=== PATIENT | male | born 1995 | race Caucasian/White ===

== ENCOUNTER 2018-10-10 21:15 | Emergency (ER) | payer SELFPAY ==
[~2018-10-10] VITALS: Ht 188 cm; Wt 72.6 kg
[2018-10-10 22:13] LABS: BASOPHILS % 0.4 % (0.0-1.0); EOSINOPHILS # (AUTO) 0.3 (0.0-0.4); EOSINOPHILS % 3.6 % (0.0-6.0); HEMATOCRIT 44.1 % (38.2-49.6); HEMOGLOBIN 14.9 g/dL (14.0-18.0); LYMPHOCYTES # (AUTO) 1.3 (1.0-3.2); LYMPHOCYTES % 15.7 % (18.0-39.1); MEAN CORPUSCULAR HEMOGLOBIN 31.2 pg (28-32); MEAN CORPUSCULAR HGB CONC 33.8 g/dL (31-35); MEAN CORPUSCULAR VOLUME 92.3 fL (81-99); MONOCYTES # (AUTO) 0.9 (0.2-0.8); MONOCYTES % 10.9 % (4.4-11.3); NEUTROPHILS # (AUTO) 5.8 (2.1-6.9); NEUTROPHILS % 69.2 % (38.7-80.0); PLATELET COUNT 267 x10e3/uL (140-360); RED BLOOD COUNT 4.78 x10e6/uL (4.3-5.7); RED CELL DISTRIBUTION WIDTH 13.4 % (11.7-14.4)
[2018-10-10 22:20] LABS: BILIRUBIN,URINE NEGATIVE (NEGATIVE); CLARITY,URINE CLEAR (CLEAR); COLOR,URINE YELLOW (YELLOW); KETONES,URINE NEGATIVE (NEGATIVE); LEUKOCYTE ESTERASE ,URINE NEGATIVE (NEGATIVE); NITRITE,URINE NEGATIVE (NEGATIVE); PROTEIN,URINE DIPSTICK TRACE (NEGATIVE); URINE UROBILINOGEN 0.2 mg/dL (0.2 - 1)
[2018-10-10 22:23] LABS: AMPHETAMINES SCREEN,URINE NEGATIVE (NEGATIVE); BENZODIAZEPINES SCREEN,URINE NEGATIVE (NEGATIVE); PHENCYCLIDINE SCREEN,URINE NEGATIVE (NEGATIVE)
[2018-10-10 22:39] LABS: ALANINE AMINOTRANSFERASE 10 IU/L (0-55); ALBUMIN 4.4 g/dL (3.5-5.0); ALBUMIN/GLOBULIN RATIO 1.3 (0.8-2.0); ALKALINE PHOSPHATASE 76 IU/L (40-150); AMYLASE 43 U/L (25-125); ANION GAP 13.6 mmol/L (8-16); BLOOD UREA NITROGEN 7 mg/dL (7-26); BUN/CREATININE RATIO 6 (6-25); CALCIUM 9.5 mg/dL (8.4-10.2); CARBON DIOXIDE 24 mmol/L (22-29); CHLORIDE 105 mmol/L (98-107); CREATININE, SERUM 1.09 mg/dL (0.72-1.25); EST GLOMERULAR FILTRATION RATE > 60 ML/MIN (60-); GLUCOSE 77 mg/dL (74-118); LIPASE 11 U/L (8-78); POTASSIUM 3.6 mmol/L (3.5-5.1); SODIUM 139 mmol/L (136-145)
[2018-10-10 22:53] LABS: BACTERIA,URINE MODERATE /HPF; EPITHELIAL CELLS,URINE MANY /LPF; RBC,URINE 0-5 /HPF (0-5); WBC,URINE (MAN) >50 /HPF (0-5)
--- NOTE | 2018-10-10 22:53 | Diagnostic Imaging Report ---
EXAMINATION: CHEST 2 VIEWS INDICATION: ^CHEST PAIN ^[id number] ^2220 COMPARISON: None FINDINGS: PA and lateral views TUBES and LINES: None. LUNGS: Lungs are well inflated. There is no evidence of pneumonia or pulmonary edema. PLEURA: No pleural effusion or pneumothorax. HEART AND MEDIASTINUM: The cardiomediastinal silhouette is unremarkable. BONES AND SOFT TISSUES: No acute osseous lesion. Soft tissues are unremarkable. UPPER ABDOMEN: No free air under the diaphragm. IMPRESSION: No acute thoracic abnormality. Signed by: Dr. Nayan Boston MD on 10/10/2018 10:50 PM
[2018-10-10 23:09] LABS: CREATINE KINASE 108 IU/L (30-200)
[2018-10-11] MEDS ORDERED: AZITHROMYCIN 250 MG TAB PO STA (00:17)
[2018-10-11] MEDS ORDERED: CEFTRIAXONE SOD 1 GM VIAL ONE (00:19)
[2018-10-11] MEDS ORDERED: SODIUM CHLORIDE 0.9% 100 ML ONE (00:19)
[2018-10-11] MEDS ORDERED: AZITHROMYCIN 250 MG TAB ONE (00:19)
[2018-10-11] MEDS ORDERED: CEFTRIAXONE SOD 1 GM/NS 50 ML 50 ML IV ONE (00:30)
== END 2018-10-11 00:46 | disposition home or self-care (01) ==
LOC: ER 21:15
DX: J20.9 Acute bronchitis, unspecified (principal); N30.00 Acute cystitis without hematuria; F17.210 Nicotine dependence, cigarettes, uncomplicated; Z82.49 Family history of ischemic heart disease and other diseases of the circulatory system; Z71.6 Tobacco abuse counseling
CPT/HCPCS: 36415; 71046; 80053; 80307; 81001; 82150; 82550; 82553; 83690; 84484; 85025; 93005; 99284; J0696; J7050

== ENCOUNTER 2018-12-20 00:02 | Emergency (ER) | payer SELFPAY ==
[~2018-12-20] VITALS: Ht 188 cm; Wt 68.0 kg
--- OUTSIDE RECORDS SUMMARY | 2018-12-20 00:04 | XMS REPORT ---
Author Author [facility] Address Unknown Phone Unavailable Care Team Providers Care Otolaryngology Nurse Name Role Phone Bella CRAWFORD Unavailable Unavailable Problems This patient has no known problems. Allergies, Adverse Reactions, Alerts This patient has no known allergies or adverse reactions. Medications This patient has no known medications. Results Test Description Test Time Test Comments Text Results Atomic Results Result Comments CHEST 2 VIEWS 2018-10-10 22:50:[address] [address] Patient Name: GILBRET ROSADO MR #: [id number] : 1995 Age/Sex: 23/M Req #: [id number] Adm Physician: Ordered by: OMKAR CRAWFORD MD Report #: [id number] Location: ER Room/Bed: Procedure: [id number] DX/CHEST 2 VIEWS Exam Date: 10/10/18 Exam Time: 2224 REPORT STATUS: Signed EXAMINATION: CHEST 2 VIEWS INDICATION: CHEST PAIN [id number] COMPARISON: None FINDINGS: PA and lateral views TUBES and LINES: None. LUNGS: Lungs are well inflated. There is no evidence of pneumonia or pulmonary edema. PLEURA: No pleural effusion or pneumothorax. HEART AND MEDIASTINUM: The cardiomediastinal silhouette is unremarkable. BONES AND SOFT TISSUES: No acute osseous lesion. Soft tissues are unremarkable. UPPER ABDOMEN: No free air under the diaphragm. IMPRESSION: No acute thoracic abnormality. Signed by: Dr. Nayan Boston MD on 10/10/2018 10:50 PM Dictated By: NAYAN BOSTON MD 49 Transcribed By: ESTEBAN on 10/10/182249 COPY TO: OMKAR CRAWFORD MD
--- NOTE | 2018-12-20 00:56 | Diagnostic Imaging Report ---
RIGHT HAND - 3 Image(s) RIGHT WRIST - 3 Image(s) HISTORY: Injury, punched a car window, third and fifth metacarpal bruising and swelling COMPARISON: None available. FINDINGS: Bones: No acute displaced fracture. No aggressive osseous lesion. Joints: Osseous alignment is within normal limits and the joint spaces are well-maintained. Soft tissues: Nonspecific dorsal soft tissue swelling overlying the region of the third metacarpal head. IMPRESSION: 1. Nonspecific dorsal soft tissue swelling. 2. No acute displaced fracture. Signed by: Dr. Austin Godoy D.O., M.M.M. on 12/20/2018 12:52 AM
[2018-12-20 01:15] VITALS: BP 123/84
== END 2018-12-20 01:26 | disposition home or self-care (01) ==
LOC: ER 00:02
DX: S60.221A Contusion of right hand, initial encounter (principal); W22.09XA Striking against other stationary object, initial encounter; X79.XXXA Intentional self-harm by blunt object, initial encounter; Y92.488 Other paved roadways as the place of occurrence of the external cause; F17.210 Nicotine dependence, cigarettes, uncomplicated
CPT/HCPCS: 99282

== ENCOUNTER 2019-10-25 15:20 | Emergency (ER) | payer SELFPAY ==
[~2019-10-25] VITALS: Ht 185.4 cm; Wt 65.8 kg
--- NOTE | 2019-10-25 16:47 | Emergency Department Note ---
History of Present Illnes History of Present Illness Chief Complaint: General Medicine Complaints History of Present Illness This is a 24 year old male arrives to the ED for cough and shortness of breath, patient states his mother insists that he could ER to get checked. 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 . Historian: Patient Arrival Mode: Car Onset (how long ago): day(s) Radiation: Reports non-radiation Severity: mild Onset quality: gradual Duration (how long): day(s) Timing of current episode: constant Progression: worsening Relieving factors: none Exacerbating factors: none Associated symptoms: Reports fever/chills Past Medical/Family History Physician Review I have reviewed the patient's past medical and family history. Any updates have been documented here. Past Medical History Recent Fever: No Clinical Suspicion of Infectio: No New/Unexplained Change in Ment: No Past Medical History: None Past Surgical History: None Social History Smoking Cessation: Current every day smoker Counseling Performed: Yes Alcohol Use: Social Any Illegal Drug Use: No TB Exposure/Symptoms: No Physically hurt or threatened: No Other Last Tetanus: UTD Review of Systems Review of Systems Constitutional: Reports fever, Reports malaise, Reports weakness EENTM: Reports no symptoms Cardiovascular: Reports no symptoms Respiratory: Reports as per HPI, Reports dyspnea Gastrointestinal: Reports no symptoms Genitourinary: Reports no symptoms Musculoskeletal: Reports no symptoms Integumentary: Reports no symptoms Neurological: Reports no symptoms Psychological: Reports no symptoms Endocrine: Reports no symptoms Hematological/Lymphatic: Reports no symptoms Physical Exam Related Data Allergies: Coded Allergies: No Known Allergies (Unverified , 10/10/18) Triage Vital Signs Vital Signs Date Time Temp Pulse Resp B/P (MAP) Pulse Ox O2 Delivery O2 Flow Rate FiO2 10/25/19 15:39 98.4 59 16 121/81 99 Vital signs reviewed: Yes Physical Exam CONSTITUTIONAL Constitutional: Present well-developed, Present well-nourished HENT HENT: Present normocephalic, Present atraumatic, Present oropharynx clear/moist, Present nose normal HENT L/R: Present left ext ear normal, Present right ext ear normal EYES Eyes: Reports PERRL, Reports conjunctivae normal NECK Neck: Present ROM normal PULMONARY Pulmonary: Present effort normal, Present breath sounds normal CARDIOVASCULAR Cardiovascular: Present regular rhythm, Present heart sounds normal, Present capillary refill normal, Present normal rate GASTROINTESTINAL Abdominal: Present soft, Present nontender, Present bowel sounds normal GENITOURINARY Genitourinary: Present exam deferred SKIN Skin: Present warm, Present dry MUSCULOSKELETAL Musculoskeletal: Present ROM normal NEUROLOGICAL Neurological: Present alert, Present oriented x 3, Present no gross motor or sensory deficits PSYCHOLOGICAL Psychological: Present mood/affect normal, Present judgement normal Results Imaging Imaging results reviewed: Yes Assessment & Plan Medical Decision Making MDM 24-year-old male 13 year smoking history of the ED with concerns of possible CoVID 19 illness. Patient did not wish to have a chest x-ray, clinically patient appeared well with no evidence of hypoxia, patient and determined steady gait. Patient informed of a possibility of possible COPD given his extensive smoking history. Outpatient pulmonary follow-up given. No evidence of respiratory distress at time of discharge. Assessment & Plan Final Impression: (1) Cough Depart Disposition: HOME, SELF-CARE Last Vital Signs Date Time Temp Pulse Resp B/P (MAP) Pulse Ox O2 Delivery O2 Flow Rate FiO2 10/25/19 15:39 98.4 59 16 121/81 99 MAEVE GARCIA, Oct 25, 2019 16:47
== END 2019-10-25 17:30 | disposition left against medical advice (07) ==
LOC: ER 15:20
DX: R05 Cough (principal); Z11.59 Encounter for screening for other viral diseases
CPT/HCPCS: 87635